=== PATIENT | female | born 1980 ===

== ENCOUNTER 2018-03-16 20:30 | Inpatient (IN) | payer MEDICAID ==
[2018-03-16] MEDS: Lactated Ringer's 1,000 ML IV SCH (23:00)
[2018-03-16 23:25] VITALS: BMI 28.3
[2018-03-16] MEDS ORDERED: Lactated Ringer's 1,000 ML IV ONE (23:47)
[2018-03-16] MEDS ORDERED: Oxytocin 30 UNIT 30 UNITS/500 ML BAG IV ONE (23:47)
[2018-03-17 00:20] LABS: BASO % 0.6 % (0.0-2.0); EOS # 0.1 K/uL (0.0-0.7); EOS % 1.4 % (0.0-4.0); HEMOGLOBIN 12.2 g/dL (11.0-16.0); LYMPH # 2.1 K/uL (1.0-4.3); LYMPH % 25.2 % (20.0-40.0); MEAN CELL VOLUME 91.3 fL (81.0-99.0); MEAN CORPUSCULAR HEMOGLOBIN 31.4 pg (27.0-31.0); MEAN CORPUSCULAR HGB CONC 34.5 g/dL (33.0-37.0); MEAN PLATELET VOLUME 10.6 fL (7.2-11.7); MONO # 0.8 K/uL (0.0-0.8); MONO % 9.6 % (0.0-10.0); NEUT # 5.2 K/uL (1.8-7.0); NEUT % 63.2 % (50.0-75.0); NRBC % 0.1 % (0.0-2.0); RBC 3.9 Mil/uL (3.80-5.20); RED CELL DISTRIBUTION WIDTH 13.1 % (11.5-14.5); WHITE BLOOD COUNT 8.2 K/uL (4.8-10.8)
[2018-03-17 00:22] LABS: SQUAMOUS EPITHIAL 4 /hpf (0-5); URINE BACTERIA RARE (<OCC); URINE BILIRUBIN NEGATIVE (NEGATIVE); URINE BLOOD NEGATIVE (NEGATIVE); URINE CLARITY Clear (Clear); URINE COLOR Yellow (YELLOW); URINE GLUCOSE (UA) NORMAL (Normal); URINE LEUKOCYTE ESTERASE TRACE Leu/uL (Negative); URINE PROTEIN NEGATIVE (NEGATIVE); URINE UROBILINOGEN NORMAL mg/dL (0.2-1.0)
[2018-03-17] MEDS ORDERED: Oxytocin 30 UNIT 30 UNITS/500 ML BAG IV ONE (00:23)
[2018-03-17 00:37] LABS: ALB/GLOB RATIO 1.2 (1.0-2.1); ALBUMIN 3.4 g/dL (3.5-5.0); ALT/SGPT 18 U/L (9-52); AST/SGOT 27 U/L (14-36); BLOOD UREA NITROGEN 12 mg/dL (7-17); CALCIUM 8.4 mg/dl (8.6-10.4); GFR NON-AFRICAN AMERICAN > 60
--- NOTE | 2018-03-17 02:01 | OBPN ---
Datetime: 03/17/2018 01:52 IP Procedures: Sterile Vag Exam IP Progress Plan: Continue present management Membranes, Provider: Intact Contraction Comments Provider: 1-3 minutes IP Progress Note Comment: Audible deceleration noted Patient received in LDR#1 lying completely supine. FHR 70s bpm. BP 99/46, dowm from 151/99 approx 1 hour earlier. Patient instructed to turn to left lateral position. Pitocin stopped. Oxygen administered by face mask. IVF bolus 500 mL initiated. Cervical exam performed - as above. FHR recovered to 135 bpm with moderate variability Assessment: 37 y.o. P1011, 40w 4d, 1 variable deceleration as above; recovered. Category 1 tracing . Clinically stable. Plan: 1) Expectant management 2) Anticipate vaginal delivery. Dilatation, Provider: 3 Effacement, Provider: 40 Station, Provider: -2 Datetime: 03/16/2018 23:44 Gestation - Est Wks by US: 40w 3d Vital Signs Provider: Reviewed; Within Normal Limits
--- NOTE | 2018-03-17 02:24 | OBHP ---
Datetime: 03/17/2018 01:52 IP Adm Impression: Postterm, intrauterine Membranes, Provider: Intact IP Indication for Induction: Postterm Dilatation, Provider: 3 Effacement, Provider: 40 Station, Provider: -2 Datetime: 03/16/2018 23:44 IP Admit Plan: Admit to unit; Initiate labor augmentation protocol Admit Comment, IP Provider: 37 y.o. , LMP 06/10/17, revised LIO 03/10/18, EGA 40w 6d by sono for IOL. (+) AFM; denies LOF, VB; (+) mild Ctx 04/15, x several days. care: [facility]: late transfer of care at 29 weeks, AMA. Rh negative. P Ob: 2008, , male, 8lb, Dom [place]. 2011, Spont Ab, 8 weeks, with D_C P [employer]AND[employer]IN T[employer]OR: 13 x monthly x 3. (+) HPV, neg Pap smear. Denies otherSTIs PMH: denies PSH: D_C NKDA Food alergy: shellfish = vomiting; throat closes Meds: PNV - last took 15 days ago. Folic acid, Calcium - once daily Soc Hx: denies tobacco, illicit drug or EtOH use. x 1 year; together x 4. First child live s in [place] with his father. Homemaker. Fam Hx: Mother alive 72 y.o. DM. Father alive 69 y.o. - no med issues. No known fam H/O cancer P.E.: as above. WD in NAD. Awake, alert, oriented to time, person and place. Pleasant and cooperat tavia Assessment: 37 y.o. P1011, 40w 6d - for augmentation. Category 1 tracing. Rh neg - S/P Rhogam. GBS (-). Category 1 tracing. Clinically stable. Plan: 1) Admit 2) NPO 3) Admission labs 4) Continuous EFM 5) IVfs 6) Pitocin 7) Anticipate vaginal delivery Pelvic Type - PN: Adequate Extremities - PN: Normal Abdomen - PN: Normal Back - PN: Normal Breast - PN: Not Done Lungs - PN: Normal Heart - PN: Normal Thyroid - PN: Not Done Neurologic - PN: Normal HEENT - PN: Normal General - PN: Normal Weight - Estimated: 8lb Presentation-Admit: Vertex FHR - Baseline A Provider: 160 Contraction Comments Provider: irregular Comments, ACOG Physical Exam: Abdomen: Gravid. Soft. Fundal height 40 cm Perineum: (+) cystocoele. Extremities: (+) varicose veins - not painful. No calf tenderness, bilaterally. All other systems reviewed and are negative Gestation - Est Wks by US: 40w 6d IP Hx Assessment: The History has been Reviewed and is Current EGA AdmitDate IP: 40.3 Vital Signs Provider: Reviewed; Within Normal Limits IP Chief Complaint: Scheduled induction of labor NICHD Variability Prov Fetus A: Moderate 6-25bpm NICHD Accel Fetus A IP Provider: 15X15 FHR Category Provider Fetus A: Category I NICHD Decel Fetus A IP Provider: None Genitourinary Exam: Normal DTRs - PN: Not Done
[2018-03-17] MEDS: Lactated Ringer's 1,000 ML IV SCH (03:00)
--- NOTE | 2018-03-17 10:05 | OBPN ---
Datetime: 03/17/2018 08:00 IP Progress Impression: Reassuring heart rate IP Informed Consent Obtain: Vaginal Delivery IP Procedures: Sterile Vag Exam IP Progress Plan: Continue present management; Augmentation; Anticipate Vaginal Delivery Membranes, Provider: Intact Contraction Comments Provider: Irregular and mild FHR - Baseline A Provider: 140 Gestation - Est Wks by US: 40.4 Presentation-Admit: Vertex IP Progress Note Comment: Pt seen and examined. No complaints. +FM Pt was started on Pitocin around midnite, soon after there was a Bradycardic episode and Pit ocin was stopped and pt was allowed to continue with her pown contractions SVE this AM revealed no change and Pitocin was restarted Discussed with patient regarding an Epidural and all of her questions were answered to her full sa tisfaction and will let us know her decision Hope for a vaginal delivery Vital Signs Provider: Reviewed; Within Normal Limits NICHD Accel Fetus A IP Provider: 10X10 FHR Category Provider Fetus A: Category I NICHD Variability Prov Fetus A: Moderate 6-25bpm Dilatation, Provider: 3 Effacement, Provider: 60 Station, Provider: -3 NICHD Decel Fetus A IP Provider: None Datetime: 03/16/2018 23:44 Weight - Estimated: 8lb
[2018-03-17] MEDS ORDERED: Bupivacaine HCl/FentaNYL Cit 100 ML EPI ONE (13:24)
--- NOTE | 2018-03-17 15:01 | OBPN ---
Datetime: 03/17/2018 14:44 IP Progress Impression: Normal progression of labor; Reassuring heart rate IP Procedures: Artificial ROM; Intrauterine Pressure Catheter; Scalp Electrode; Sterile Vag Ex am IP Progress Plan: Continue present management Membranes, Provider: Ruptured Amniotic Fluid Color, Provider: Clear IP Progress Note Comment: Pt is a 37yo , LMP 06/10/17, 40.6 - Bimanual exam: cervix 5cm dilatedm 90% effaced, -2 station - artificial rupture of membranes - IPC placed with ease - FSE placed with ease - heart tones reassuring - continue current managment - progressing well Pt seen, examined, assessment and plan discussed with Dr Ian Negrete PGY1, Internal Medicine Resident Vital Signs Provider: Within Normal Limits Station, Provider: -2 Datetime: 03/17/2018 13:52 FHR - Baseline A Provider: 120 NICHD Accel Fetus A IP Provider: 10X10 NICHD Variability Prov Fetus A: Moderate 6-25bpm Dilatation, Provider: 3 Effacement, Provider: 80
--- NOTE | 2018-03-17 15:42 | OBPN ---
Datetime: 03/17/2018 14:44 IP Informed Consent Obtain: Vaginal Delivery IP Progress Plan: Continue present management; Anticipate Vaginal Delivery FHR - Baseline A Provider: 120 Gestation - Est Wks by US: 40.4 Presentation-Admit: Vertex IP Progress Note Comment: Pt is a 37yo , LMP 06/10/17, 40.6 - Epidural placed and working well - Bimanual exam: cervix 4cm dilated, 90% effaced, -2 station - artificial rupture of membranes - IUPC placed with ease - FSE placed with ease - heart tones reassuring / Ocassional Earlies c/w head compression - Pitocin at 12 mU/min - continue current management - progressing well - Anticipate a vaginal delivery Pt seen, examined, assessment and plan discussed with Dr Ian Negrete PGY1, Internal Medicine Resident NICHD Accel Fetus A IP Provider: 10X10 FHR Category Provider Fetus A: Category I NICHD Variability Prov Fetus A: Moderate 6-25bpm Dilatation, Provider: 4 NICHD Decel Fetus A IP Provider: Early
[2018-03-17] MEDS ORDERED: Lidocaine 2% MPF (5 ml) Inj ONE (17:01)
--- NOTE | 2018-03-17 18:22 | OBDS ---
DELIVERY PERSONNEL Delivery Doctor: Keyanna Sevilla DO Swimming Pool Serviceperson: Stephanie Centeno RN Anesthesiologist: Violet Grady MD Resident: MATERNAL INFORMATION Delivery Anesthesia: Epidural Medications in Delivery: n/a Estimated Blood Loss (ml): 200 Placenta Cultured: No Maternal Complications: None RN Comments: liveborn baby girl born via nsd 9/9 Provider Comments: of viable female from EDWIGE position and over a Midline Episiotomy. Ap gars 9_9 and BW 8lbs 4 oz. EBL 200 mls Fundus firm with Pitocin infusion Placenta, cord blood and cord pH collected and sent Pt and tolerated the procedure well and remained in the DR in Stable and Satisfactory cond ition. LABOR SUMMARY EDC: 03/13/2018 00:00 No. Babies in Womb: 1 Attempted: No Labor Anesthesia: Epidural LABOR INFORMATION Reason for Induction: Postterm Complete Dilatation: 03/17/2018 16:21 Oxytocin: Augmentation Group B Beta Strep: Negative (Annotations: 02/17/2018) Antibiotics # of Doses: 0 Antibiotics Time of Last Dose: 0 Steroids Given: None Reason Steroids Not Administered: Not Applicable MEMBRANES Membranes Rupture Method: Artificial Rupture of Membranes: 03/17/2018 14:20 Length of Rupture (hrs): 2.65 Amniotic Fluid Color: Clear Amniotic Fluid Amount: Moderate Amniotic Fluid Odor: Normal STAGES OF LABOR Stage 2 hrs: 0 Stage 2 min: 38 Stage 3 hrs: 0 Stage 3 min: 5 VAGINAL DELIVERY Episiotomy: Median Laceration Extension: N/A Laceration Type: None Laceration Repair: Yes Laceration Repair Note: 2-0 Vicryl suture utilized and Epidural Anesthesia was working well so no Li docaine needed. Pt tolerated the procedure well Initial Vag Sponge Count: 10 Final Vag Sponge Count: 10 Initial Vag Sharps Count: 2 Final Vag Sharps Count: 2 Sponge Count Correct: Yes Sharps Count Correct: Yes Count Comment: all needles and spomge counts correct done with dr sevilla BABY A INFORMATION Infant Delivery Date/Time: 03/17/2018 16:59 Method of Delivery: Vaginal Born in Route : No : N/A Forceps: N/A Vacuum Extraction: N/A Shoulder Dystocia : No SHOULDER DYSTOCIA BABY A Infant Delivery Date/Time: 03/17/2018 16:59 PRESENTATION/POSITION BABY A Presentation: Cephalic Cephalic Presentation: Vertex Vertex Position: Right Occipital Anterior Breech Presentation: N/A PLACENTA INFORMATION BABY A Placenta Delivery Time : 03/17/2018 17:04 Placenta Method of Delivery: Spontaneous Placenta Status: Delivered SCORES BABY A Heart Rate 1 min: >100 bpm Resp Effort 1 min: Good Cry Reflex Irritability 1 min: Cough or Sneeze or Pulls Away Muscle Tone 1 min: Active Motion Color 1 min: Body [place], Extremities Blue SCORE 1 MIN: 9 Heart Rate 5 min: >100 bpm Resp Effort 5 min: Good Cry Reflex Irritability 5 min: Cough or Sneeze or Pulls Away Muscle Tone 5 min: Active Motion Color 5 min: Body [place], Extremities Blue SCORE 5 MIN: 9 INFANT INFORMATION BABY A Gestational Age at Delivery: 40.4 Gestational Status: Term Infant Outcome : Liveborn Infant Condition : Stable Infant Sex: Female IDENTIFICATION/MEDS BABY A ID Band Number: [id number] ID Band Location: Left Leg; Left Arm Sensor Applied: Yes Sensor Number: [id number] Sensor Location : Cord Clamp Vitamin K Given : Not Given Erythromycin Given: Not Given WEIGHT/LENGTH BABY A Infant Birthweight (gms): 3750 Weight (lb): 8 Infant Weight (oz): 4 Length Inches: 20.00 Infant Length cms: 50.8 CORD INFORMATION BABY A No. Cord Vessels: 3 Nuchal Cord : N/A Infant Cord pH Baby Arterial: 7.27 Cord pH Baby Venous: 7.30 Cord Blood Taken: Yes Infant Suction: Mouth; Nose
[2018-03-17] MEDS: Benzocaine/Menthol 20%-0.5% Topical Spray (60 ml) TOP PRN (23:34)
[2018-03-18] MEDS: Oxycodone/Acetaminophen 5/325 mg Tab PO PRN (00:18)
[2018-03-18 01:19] VITALS: RESP 20
[2018-03-18 08:53] LABS: BASO % 0.3 % (0.0-2.0); EOS # 0.1 K/uL (0.0-0.7); EOS % 0.8 % (0.0-4.0); LYMPH # 2.2 K/uL (1.0-4.3); LYMPH % 16.9 % (20.0-40.0); MEAN CELL VOLUME 91.9 fL (81.0-99.0); MEAN CORPUSCULAR HEMOGLOBIN 31.2 pg (27.0-31.0); MEAN PLATELET VOLUME 9.9 fL (7.2-11.7); MONO # 1.1 K/uL (0.0-0.8); MONO % 8.1 % (0.0-10.0); NEUT # 9.7 K/uL (1.8-7.0); NEUT % 73.9 % (50.0-75.0); RBC 3.85 Mil/uL (3.80-5.20); RED CELL DISTRIBUTION WIDTH 13.3 % (11.5-14.5)
[2018-03-18 08:54] LABS: WHITE BLOOD COUNT 13.2 K/uL (4.8-10.8)
[2018-03-18] MEDS: Benzocaine/Menthol 20%-0.5% Topical Spray (60 ml) TOP PRN (10:27)
[2018-03-18] MEDS: Multiple Vitamins Tab PO SCH (10:28)
--- NOTE | 2018-03-18 17:38 | OBPPN ---
Datetime: 03/18/2018 09:13 PP Pain Prov: Within normal limits PP Nausea Prov: Denies PP Flatus Prov: Yes PP BM Prov: Yes PP Heart Prov: Normal PP Lungs Prov: Normal PP Abdomen/Uterus Prov: Normal PP Lochia Prov: Normal PP Extremities Prov: Normal PP Progress Prov: Normal PP Impression Prov: Normal progression PP Plan Prov: Continue present management PP Progress Note Prov: Pt is a 37yo female who is PPD #1. Pt states her pain is well control led at this time with Motrin, she has no new compaints. Pt reports vaginal bleeding. She is breast fe eding. Pt denies chest pain, SOB, nausea, or vomiting. Assessment and plan - 37yo , , PPD #1 - H/H 12.2/35.6; PPD#1 H/H 12.0/35.4 - encourage pt to walk - encourage pt to drink water - motrin for pain control at this time Pt seen, examined, assessment and plan discussed with Dr Lele Negrete PGY1, Internal Medicine Resident Attending Note: patient seen, evluated and examined by me with the Resident. I agree with the abov e. Patient is Rh negative; is Rh (+). Patient received Rhogam. Clinically stable. Plan: 1) as above 2) Anticipate discharge home 03/19/18 Vital Signs Provider PP: Reviewed; Within Normal Limits
[2018-03-19 00:27] VITALS: O2SAT 98
[2018-03-19] MEDS: Oxycodone/Acetaminophen 5/325 mg Tab PO PRN (06:15)
[2018-03-19 09:38] VITALS: BP 111/69; PULSE 64
[2018-03-19] MEDS ORDERED: Influenza Vaccine 60 MCG/0.5 ML SYR (3 yr & up) IM ONE (10:00)
[2018-03-19] MEDS: Multiple Vitamins Tab PO SCH (10:22)
--- NOTE | 2018-03-19 16:13 | OBPPN ---
Datetime: 03/19/2018 07:35 PP Pain Prov: Within normal limits PP Nausea Prov: Denies PP Flatus Prov: Yes PP BM Prov: Yes PP Breasts Prov: Not Done PP Heart Prov: Normal PP Lungs Prov: Normal PP Abdomen/Uterus Prov: Normal PP Lochia Prov: Normal PP Vulva/Perineum Prov: Normal PP Extremities Prov: Normal PP Progress Prov: Normal PP Comments Phys Exam Prov: Fundus below Umbilicus, firm and non-tender PP Impression Prov: Normal progression PP Plan Prov: Continue present management PP Progress Note Prov: Pt is a 37yo female who is PPD #2. Pain well controlled at this time with Motrin. Pt is OOB and walking. Reports drinking water. She is breast feeding. Pt denies chest pa in, SOB, nausea, or vomiting. Assessment and plan - 37yo , , PPD #2 - H/H 12.2/35.6 on admission; - PPD#1 H/H 12.0/35.4 - encourage walking - advised pt to increase po water intake - motrin for pain control at this time - Stable and Satisfactory condition and recovery - anticipate discharge today Pt seen, examined, assessment and plan discussed with Dr Ian Negrete PGY1, Internal Medicine Resident IP PP Procedures: None Vital Signs Provider PP: Reviewed; Within Normal Limits
--- NOTE | 2018-03-19 16:17 | OBDCSUM ---
Datetime: 03/19/2018 13:11 Discharged to, Provider: Home Follow up at, Provider: [facility] Disch Instr Activity: Normal activity Disch Instr Diet: Regular Discharge Diet restrict Prov: none Discharge Time: 03/19/2018 14:00 Follow up in weeks, Provider: April 28, 2018 Disch Referrals: None Disch Activity Restrictions: No exercising; No lifting; No driving; Minimize walking; Minimize stair -climbing; No sexual activity; Nothing in vagina - [place], tampons, douche Datetime: 03/19/2018 11:15 Discharged to, Provider: Home Follow up at, Provider: [facility] Disch Instr Activity: Normal activity Disch Instr Diet: Regular Discharge Instructions, Provider: Routine instructions given Discharge Diagnosis, Provider: Term Delivered Discharge Time: 03/19/2018 14:00 Follow up in weeks, Provider: 1 week Disch Referrals: None Disch Activity Restrictions: No sexual activity; Nothing in vagina - [place], tampons, douche Discharge Comment, Provider: Pain well controlled at this time with Motrin. Pt is OOB and walking. R eports drinking water. She is breast feeding. Assessment and plan - 37yo , , PPD #2 - H/H 12.2/35.6; PPD#1 H/H 12.0/35.4 - Blood type: B negative and received Rhogam - encourage walking - advised pt to drink water - motrin for pain control at this time - pelvic rest nothing in the vagina for the next 4-6 weeks - Stable and Satisfactory condition and recovery - Discharge today with Instructions and Rx for Motrin Pt seen, examined, assessment and plan discussed with Dr Ian Negrete PGY1, Internal Medicine Resident
[2018-03-19 21:17] VITALS: TEMP 97.6
== END 2018-03-19 13:00 | disposition home or self-care (01) | DRG 560 ==
LOC: C.EROB 20:30 → C.4D 22:36 → C.4M 03-17 20:00
PROVIDERS: ADMIT Obstetrics & Gynecology; ATTEND Obstetrics & Gynecology
PROC: 10E0XZZ Delivery of Products of Conception, External Approach (ICD-10-PCS; principal; 2018-03-17)
PROC: 0W8NXZZ Division of Female Perineum, External Approach (ICD-10-PCS; 2018-03-17)
PROC: 3E033VJ Introduction of Other Hormone into Peripheral Vein, Percutaneous Approach (ICD-10-PCS; 2018-03-17)
PROC: 10907ZC Drainage of Amniotic Fluid, Therapeutic from Products of Conception, Via Natural or Artificial Opening (ICD-10-PCS; 2018-03-17)
DX: O76 Abnormality in fetal heart rate and rhythm complicating labor and delivery (principal); O36.0930 Maternal care for other rhesus isoimmunization, third trimester, not applicable or unspecified; O48.0 Post-term pregnancy; Z37.0 Single live birth; Z3A.40 40 weeks gestation of pregnancy